=== PATIENT | female | born 1970 | race Caucasian/White ===

== ENCOUNTER 2024-06-10 14:29 | Emergency (ER) | payer BC, OTHER ==
[2024-06-10] MEDS ORDERED: Morphine 4 MG/ML VIAL ONE (15:12)
[2024-06-10] MEDS ORDERED: Ketorolac Tromethamine 30 MG (1 mL) VIAL ONE (15:13)
== END 2024-06-10 16:10 | disposition home or self-care (01) ==
LOC: CSHERS 14:29
DX: S76.911A Strain of unspecified muscles, fascia and tendons at thigh level, right thigh, initial encounter (principal); E10.9 Type 1 diabetes mellitus without complications; E03.9 Hypothyroidism, unspecified; X50.1XXA Overexertion from prolonged static or awkward postures, initial encounter
CPT/HCPCS: 96372; J1885; J2270